=== PATIENT | male | born 1935 | race Asian ===

== ENCOUNTER 2021-06-24 22:15 | Emergency (ER) | payer OTHER ==
[~2021-06-24] VITALS: Ht 175.3 cm; Wt 67.1 kg
[~2021-06-24 22:15] MED LIST: CEFU250T2 PO; DONE5TAB PO; ESCI10TA PO; FOLI1TAB26 PO; MEMA5TAB PO; METO50TA27 PO; MIRTAZAPINE7.5 MG PO; RISP0.25 PO; THIA100T8 PO
[2021-06-24 22:48] LABS: PLATELET COUNT 180 K/uL (142-355)
[2021-06-24 22:55] LABS: POTASSIUM 5.9 mmol/L (3.6-5.2)
[2021-06-24 23:15] VITALS: BP 160/90; TEMP 98.8
[2021-06-25] MEDS ORDERED: DIVA250T PO (15:09)
[2021-06-25] MEDS ORDERED: PRINIVIL10 MG PO (15:13)
[2021-06-25] MEDS ORDERED: RISP0.5T2 PO (15:17)
[2021-06-25] MEDS ORDERED: [UNRECOGNIZED DRUG - OTHER] PO (15:19)
[2021-06-25] MEDS ORDERED: HALO5INJ3 IM (15:21)
[2021-06-25] MEDS ORDERED: TYLENOL325 MG PO (15:23)
== END 2021-06-24 23:15 | disposition still patient (30) ==
LOC: ED 22:15
PROVIDERS: Hospitalist
DX: F25.8 Other schizoaffective disorders (principal); R46.89 Other symptoms and signs involving appearance and behavior; Z11.52 Encounter for screening for COVID-19; Z04.6 Encounter for general psychiatric examination, requested by authority
CPT/HCPCS: 36415; 80053; 85027; 87635; 93005; 99283; U0003